=== PATIENT | female | born 1995 | race Caucasian/White ===

== ENCOUNTER → 2017-04-25 | Outpatient (CLI) | payer BC ==
--- NOTE | 2017-04-25 16:32 | Diagnostic Imaging Report ---
INDICATION: Undergoing anatomical assessment. TECHNIQUE: Multiple real-time grayscale images were obtained over the gravid uterus. COMPARISON: None FINDINGS: There is a single viable intrauterine currently in a breech presentation. There appears to be normal amount of amniotic fluid. Posteriorly positioned placenta without evidence for previa. Cervical length at 3.6 cm. Visualized anatomical structures unremarkable. Biometrical measurements are as follows: Biparietal 5.17 cm, age 21 weeks 5 days. Head circumference 19.84 cm, age 22 weeks 1 days. Abdominal circumference 18.15 cm, age 23 weeks 0 days. Femur length 3.77 cm, age 22 weeks 1 days. Sonographic estimate age: 22 weeks 2 days. Sonographic estimated date of delivery: 08/27/2017. Estimated Weight: 507 gm (+/- 74 gm). LMP percentile: 20%. heart rate: 153 beats per minute. Cervical length: 3.6 cm. number: 1 of 1. IMPRESSION: Single viable intrauterine currently in breech presentation. Current sonographic estimated age of 22 weeks 2 days for an estimated date of delivery August 27, 2017. No abnormality is noted at this time. Dictated by: Dictated on workstation # [id number]
== END ==
LOC: RAD 15:04
PROVIDERS: ATTEND Obstetrics & Gynecology
DX: Z36 Encounter for antenatal screening of mother (principal); Z3A.22 22 weeks gestation of pregnancy
CPT/HCPCS: 76805; 76817

== ENCOUNTER 2017-07-31 01:08 | Outpatient (CLI) | payer BC ==
[~2017-07-31] VITALS: Ht 160 cm; Wt 73.0 kg
[2017-07-31 01:25] VITALS: BP 135/82
[2017-07-31 01:43] LABS: BILIRUBIN,URINE NEGATIVE (NEGATIVE); KETONES,URINE NEGATIVE (NEGATIVE); LEUKOCYTE ESTERASE ,URINE 2+ (NEGATIVE); NITRITE,URINE NEGATIVE (NEGATIVE); PH,URINE 7 (5-9); PROTEIN,URINE NEGATIVE (NEGATIVE); UROBILINOGEN,URINE NORMAL (NORMAL)
[2017-07-31] MEDS ORDERED: ESCI10TA PO (01:44)
[2017-07-31] MEDS ORDERED: PREN-142 PO (01:44)
[2017-07-31] MEDS ORDERED: LEVO25TA2 PO (01:44)
[2017-07-31 01:53] LABS: WBC,URINE 0-2 /HPF
[2017-07-31 01:55] VITALS: BP 131/85
[2017-07-31] MEDS ORDERED: PROMETHAZINE 25 MG (PHENERGAN) TAB ONE (02:06)
[2017-07-31] MEDS ORDERED: PROMETHAZINE 25 MG (PHENERGAN) TAB PO ONE (02:15)
--- NOTE | 2017-08-01 10:57 | Physician Query-Final Dx ---
Clinic Account Progress/Dx Physician Query: Date of Service Jul 31, 2017 at 01:08 DIAGNOSIS: Diagnosis Third trimester dyspnea headache nausea BANG ORELLANA DO Aug 01, 2017 10:57
[2017-08-13] MEDS ORDERED: IBUP-1773 PO (23:47)
[2017-08-14] MEDS ORDERED: POTA20TA15 PO (13:25)
[2017-08-14] MEDS ORDERED: FURO20TA4 PO (13:25)
== END 2017-07-31 02:16 | disposition home or self-care (01) ==
LOC: WSo 01:08 → LDRP 01:09 → WSo 02:16
PROVIDERS: ATTEND Obstetrics & Gynecology
DX: O99.89 Other specified diseases and conditions complicating pregnancy, childbirth and the puerperium; R06.09 Other forms of dyspnea; Z3A.36 36 weeks gestation of pregnancy; R51 Headache; R11.0 Nausea
CPT/HCPCS: 81000; 99212

== ENCOUNTER 2017-08-04 16:55 | Outpatient (CLI) | payer BC ==
[~2017-08-04] VITALS: Ht 160 cm; Wt 73.0 kg
[~2017-08-04 16:55] MED LIST: ESCI10TA PO; LEVO25TA2 PO; PREN-142 PO
[2017-08-04 17:13] VITALS: BP 134/92
--- NOTE | 2017-08-05 14:15 | Physician Query-Final Dx ---
MAUDE SWEET 08/05/17 2:15pm: Clinic Account Progress/Dx Physician Query: Please give diagnosis Date of Service Aug 04, 2017 at 16:55 BANG ORELLANA DO 08/21/17 7:50pm: Clinic Account Progress/Dx DIAGNOSIS: Diagnosis threatened labor not delivered at term (37 1/7 weeks) hypothyroid MAUDE SWEET Aug 05, 2017 2:15 pm BANG ORELLANA DO Aug 21, 2017 7:50 pm
[2017-08-13] MEDS ORDERED: IBUP-1773 PO (23:47)
[2017-08-14] MEDS ORDERED: FURO20TA4 PO (13:25)
[2017-08-14] MEDS ORDERED: POTA20TA15 PO (13:25)
== END 2017-08-04 18:20 | disposition home or self-care (01) ==
LOC: WSo 16:55
PROVIDERS: ATTEND Obstetrics & Gynecology
DX: O47.1 False labor at or after 37 completed weeks of gestation (principal); O99.283 Endocrine, nutritional and metabolic diseases complicating pregnancy, third trimester; E03.9 Hypothyroidism, unspecified; Z3A.37 37 weeks gestation of pregnancy
CPT/HCPCS: 99214

== ENCOUNTER 2017-08-16 15:16 | Emergency (ER) | payer BC ==
[~2017-08-16] VITALS: Ht 157.5 cm; Wt 68.0 kg
[~2017-08-16 15:16] MED LIST changes: +FURO20TA4 PO; +IBUP-1773 PO; +POTA20TA15 PO
--- OUTSIDE RECORDS SUMMARY | 2017-08-16 15:22 | XMS REPORT | Continuity of Care Document ---
Author Author [facility] Organization [facility] Address Unknown Phone Unavailable Allergies Medications Problems Procedures Results Encounters ACCT No. Visit Date/Time Discharge Status Pt. Type Provider Facility Loc./Unit Complaint [id number] 06/20/2015 21:25:38 06/20/2015 23: 59:59 [facility] Outpatient REYNOLD EUCEDA [id number] 02/02/2015 14:31:38 02/02/2015 23: 59:59 [facility] Out[facility] REYNOLD EUCEDA [id number] 09/15/2014 09:54:57 09/15/2014 23: 59:59 [facility] Outpatient REYNOLD EUCEDA [id number] 04/01/2014 09:53:05 04/01/2014 23: 59:59 [facility] Outpatient Belem Chavira
[2017-08-16 15:57] LABS: BILIRUBIN,URINE NEGATIVE (NEGATIVE); KETONES,URINE NEGATIVE (NEGATIVE); LEUKOCYTE ESTERASE ,URINE 3+ (NEGATIVE); NITRITE,URINE NEGATIVE (NEGATIVE); PH,URINE 7 (5-9); PROTEIN,URINE 1+ (NEGATIVE); UROBILINOGEN,URINE NORMAL (NORMAL)
[2017-08-16] MEDS ORDERED: LABETALOL HCL 20 MG/4 ML VIAL IV ONE ×2 (16:00→16:30)
[2017-08-16 16:02] LABS: BASOPHILS % (AUTO) 0 % (0-10); EOSINOPHILS # (AUTO) 0.6 10^3/uL (0.0-0.3); EOSINOPHILS % (AUTO) 4 % (0-10); LYMPHOCYTES # (AUTO) 2.6 X 10^3 (1.0-4.0); LYMPHOCYTES % (AUTO) 18 % (12-44); MEAN CORPUSCULAR HEMOGLOBIN 30 PG (25-34); MEAN CORPUSCULAR HGB CONC 34 G/DL (32-36); MEAN CORPUSCULAR VOLUME 89 FL (80-99); MEAN PLATELET VOLUME 9.3 FL (7.4-10.4); MONOCYTES # (AUTO) 1.3 X 10^3 (0.0-1.0); MONOCYTES % (AUTO) 9 % (0-12); NEUTROPHILS # (AUTO) 9.8 X 10^3 (1.8-7.8); NEUTROPHILS % (AUTO) 69 % (42-75); PLATELET COUNT 308 10^3/uL (130-400); RED BLOOD COUNT 4.54 10^6/uL (4.35-5.85); WHITE BLOOD COUNT 14.2 10^3/uL (4.3-11.0)
--- NOTE | 2017-08-16 16:05 | ED General ---
General Chief Complaint: Head/Cervical Problems Stated Complaint: POST /HEADACHE/ELEV BP Nursing Triage Note: c/o headache and malaise x 2 days. Hypertension noted. Nursing Sepsis Screen: No Definite Risk Source of Information: Patient Exam Limitations: No Limitations History of Present Illness Time Seen by Provider: 15:23 Initial Comments This 21-year-old young lady presents to the emergency room with symptoms of headache, hypertension, and swelling on day number 4. She had a vaginal delivery on August 12. She was noted to be hypertensive at the time of discharge and was started on Lasix. Headache has been persistent for 2 days despite ibuprofen and Tylenol use. She is hypertensive on assessment. She denies any abdominal pain, vision changes, nausea, or other symptoms. Swelling has improved a little but headache has not. Dr. Orellana is her manager primary and Dr. Pro is her primary care provider. She is breast-feeding. She reports her blood pressure issue started first and her headache followed a couple days later. Her headache is worse with lying down and better with standing up. Allergies and Home Medications Allergies Coded Allergies: prednisone (Verified Allergy, Unknown, 07/31/17) Home Medications Amlodipine Besylate 10 Mg Tablet, 10 MG PO DAILY, #30 Prescribed by: RAJ ROSS on 08/16/17 1745 Escitalopram Oxalate 10 Mg Tablet, 10 MG PO DAILY, (Reported) Furosemide 20 Mg Tablet, 20 MG PO DAILY for 10 Days, #10 Prescribed by: BANG ORELLANA on 08/14/17 1325 Hydrocodone/Acetaminophen 1 Each Tablet, 1 EACH PO Q4H PRN for PAIN, #20 Prescribed by: RAJ ROSS on 08/16/17 1745 Ibuprofen 600 Mg Tablet, 600 MG PO Q6H, #60 Prescribed by: BANG ORELLANA on 08/13/17 2347 Levothyroxine Sodium 25 Mcg Tablet, 25 MCG PO DAILY, (Reported) Potassium Chloride 20 Meq Tab.er.prt, 20 MEQ PO DAILY for 10 Days, #10 Prescribed by: BANG ORELLANA on 08/14/17 1325 Vit No.124/Iron/FA 1 Each Tablet, 1 EACH PO DAILY, (Reported) Constitutional: no symptoms reported EENTM: no symptoms reported Respiratory: no symptoms reported Cardiovascular: see HPI Gastrointestinal: no symptoms reported Genitourinary: no symptoms reported : No LMP: Aug 12, 2017 Musculoskeletal: no symptoms reported Skin: no symptoms reported Psychiatric/Neurological: See HPI Hematologic/Lymphatic: No Symptoms Reported Immunological/Allergic: no symptoms reported Past Rjemsxe-Cfqion-Klojlp Hx Patient Social History Alcohol Use: Denies Use Recreational Drug Use: No Smoking Status: Current Someday Smoker Type Used: Cigarettes Recent Foreign Travel: No Contact w/Someone Who Travel: No Recent Infectious Disease Expo: No Recent Hopitalizations: No Immunizations Up To Date PED Vaccines UTD: Yes Seasonal Allergies Seasonal Allergies: No Surgeries History of Surgeries: No Respiratory History of Respiratory Disorde: No Cardiovascular History of Cardiac Disorders: No Neurological History of Neurological Disord: No Reproductive System : No Genitourinary History of Genitourinary Disor: No Gastrointestinal History of Gastrointestinal Di: No Musculoskeletal History of Musculoskeletal Dis: No Endocrine History of Endocrine Disorders: No HEENT History of HEENT Disorders: No Cancer History of Cancer: No Psychosocial History of Psychiatric Problem: No Integumentary History of Skin or Integumenta: No Blood Transfusions History of Blood Disorders: No Adverse Reaction to a Blood Tr: No Family Medical History Family Medial History: Hypertension 19 FATHER Physical Exam Vital Signs Vital Sign - Last 12Hours 08/16/17 15:38 Temp 98.1 Pulse 82 Resp 16 B/P (MAP) 167/122 Pulse Ox 98 O2 Delivery Room Air Capillary Refill : Less Than 3 Seconds General Appearance: No Apparent Distress, WD/WN HEENT: PERRL/EOMI, Normal ENT Inspection, Pharynx Normal Neck: Normal Inspection Respiratory: Lungs Clear, Normal Breath Sounds, No Accessory Muscle Use, No Respiratory Distress Cardiovascular: Regular Rate, Rhythm, No Murmur, Other (mild to moderate pitting edema of the feet and ankles bilaterally) Gastrointestinal: Non Tender, Soft, No Distended Extremity: Non Tender, Pedal Edema Neurologic/Psychiatric: Alert, Oriented x3, No Motor/Sensory Deficits, top former II- XII Norm as Tested, Other (mildly anxious) Skin: Normal Color, Warm/Dry Progress/Results/Core Measures Results/Orders Lab Results My Orders Orders - RAJ GE MD Iv Push Abrasive Sawyer Ed (08/16/17 ) Medications Given in ED Vital Signs/I&O Blood Pressure Mean: 137 Progress Note #1: Time: 16:05 Progress Note Labs and UA are pending. Patient will be given labetalol 10 mg as initial therapy for her hypertension. Hopefully reduction blood pressure will help her pain. Toradol was considered but patient took ibuprofen about one hour prior to arrival. Progress Note #2: Time: 17:46 Progress Note Case was reviewed with Dr. Orellana. Patient's pain did not improve with treatment of blood pressure. Patient's pain was then treated with fentanyl which did not significantly improve the hypertension. Patient was therefore prescribed both Norvasc and hydrocodone per discussion with Dr. Orellana. Leukocytosis and appearance of urine are likely due to her state. May be treated for UTI if culture indicates. After discussion with Dr. Orellana, it was noted patient was on levothyroxine during the but discontinued it after . A TSH and free T4 were added to her lab work. Patient was not kept in the ER for results. Departure Impression Impression: Primary Impression: Hypertension Qualified Codes: I10 - Essential (primary) hypertension Additional Impressions: Headache Qualified Codes: R51 - Headache state Disposition: HOME, SELF-CARE Condition: Improved Departure-Patient Inst. Decision time for Depature: 17:41 Referrals: BANG ORELLANA DO (PCP) Primary Care Physician AFSHAN PRO DO (Family) Primary Care Physician Patient Instructions: Headache, Adult (DC) Add. Discharge Instructions: You may continue taking ibuprofen as your primary pain medication. Add hydrocodone for pain not controlled by ibuprofen. Eat a low salt diet and elevate your feet when possible to reduce swelling. You may continue with Lasix until otherwise instructed by Dr. Orellana. Start your blood pressure medication this evening. Return to the emergency room if symptoms worsen or are not improving. Contact Dr. Orellana with any questions or concerns, and please give Dr. Orellana an update on Saturday with your status. You may continue breast- feeding. All discharge instructions reviewed with patient and/or family. Voiced understanding. Scripts Hydrocodone/Acetaminophen (Hydrocodon -Acetaminophen 5-325) 1 Each Tablet 1 EACH PO Q4H Y for PAIN, #20 TAB Prov: RAJ GE MD 08/16/17 Amlodipine Besylate (Norvasc) 10 Mg Tablet 10 MG PO DAILY, #30 TAB Prov: RAJ GE MD 10/6/17 Copy Copies To 1: BANG ORELLANA DO Copies To 2: AFSHAN PRO JOSHUA T MD Aug 16, 2017 16:05
[2017-08-16 16:20] LABS: INR 0.9 (0.8-1.4); PROTHROMBIN TIME PATIENT 11.9 SEC (12.2-14.7)
[2017-08-16 16:30] LABS: ALANINE AMINOTRANSFERASE 16 U/L (0-55); ALBUMIN 3.5 GM/DL (3.2-4.5); ANION GAP 10 MMOL/L (5-14); ASPARTATE AMINO TRANSFERASE 16 U/L (5-34); BILIRUBIN,TOTAL 0.4 MG/DL (0.1-1.0); BLOOD UREA NITROGEN 9 MG/DL (7-18); BUN/CREATININE RATIO 14; CARBON DIOXIDE 22 MMOL/L (21-32); CHLORIDE 107 MMOL/L (98-107); CREATININE SERUM 0.66 MG/DL (0.60-1.30); GFR ESTIMATED > 60; GLUCOSE 78 MG/DL (70-105); LACTATE DEHYDROGENASE 241 U/L (125-220); POTASSIUM 3.7 MMOL/L (3.6-5.0); SODIUM 139 MMOL/L (135-145); TOTAL PROTEIN 6.8 GM/DL (6.4-8.2); URIC ACID 4.2 MG/DL (2.6-7.2)
[2017-08-16 16:43] LABS: BAND NEUTROPHILS 3 %; NEUTROPHILS % (MANUAL) 67 %
[2017-08-16 16:44] LABS: EOSINOPHILS % (MANUAL) 4 %; LYMPHOCYTES % (MANUAL) 18 %
[2017-08-16 16:48] LABS: WBC,URINE 50-100 /HPF
[2017-08-16 16:51] LABS: RENAL EPITHELIAL CELLS,URINE 0-2 /HPF
[2017-08-16] MEDS ORDERED: fentaNYL INJECTION 100 MCG/2 ML AMP IVP ONE (17:15)
[2017-08-16] MEDS ORDERED: AMLO10TA4 PO (17:45)
[2017-08-16] MEDS ORDERED: HYDR-3812 PO (17:45)
[2017-08-16 17:55] VITALS: BP 157/95
== END 2017-08-16 17:55 | disposition home or self-care (01) ==
LOC: EDUNIT# 15:16 → ER 15:19
DX: O16.5 Unspecified maternal hypertension, complicating the puerperium (principal); O99.355 Diseases of the nervous system complicating the puerperium; F17.210 Nicotine dependence, cigarettes, uncomplicated
CPT/HCPCS: 36415; 80053; 81000; 83615; 84443; 84550; 85007; 85027; 85610; 85730; 87088; 96374; 96375; 96376